=== PATIENT | female | born 1970 | race Caucasian/White ===

== ENCOUNTER 2023-07-01 06:23 | Day surgery (SDC) | payer OTHER, SELFPAY ==
[2023-06-12 08:58] LABS: Hematocrit 42.7 % (37.0-47.0); Hemoglobin 13.9 g/dL (12.0-16.0); Mean Corp Hgb Conc. 32.6 g/dL (33.0-37.0); Mean Corpuscular Volume 86.1 fL (81.0-99.0); Mean Platelet Volume 9.7 fL (7.4-10.4); Platelet Count 280 10^3/uL (130-400); Red Blood Cell Count 4.96 10^6/uL (4.20-5.40); Red Cell Dist. Width 12.8 % (11.5-14.5); White Blood Cell Count 5.5 10^3/uL (4.8-10.8)
[2023-06-12 09:10] LABS: Blood Urea Nitrogen 18 mg/dl (7-17); Calcium 9.6 mg/dl (8.4-10.2); Carbon Dioxide 29 mmol/L (22-30); Chloride 101 mmol/L (98-107); Glucose 90 mg/dl (70-99); Potassium 4.6 mmol/L (3.5-5.1); Sodium 140 mmol/L (135-145); eGFR > 60.00
[2023-06-12 13:54] VITALS: BMI 34.5
[2023-07-01] VITALS (10 sets, daily range): BP systolic 113–153; BP diastolic 55–84; BMI 34.5
[2023-07-01] MEDS: NORMOSOL-R 1000 IV (08:22)
[2023-07-01] MEDS: CELEBREX 200 MG PO (08:22)
[2023-07-01] MEDS: TYLENOL 1000 MG PO (08:22)
== END 2023-07-01 13:15 | disposition home or self-care (01) ==
LOC: SDS 06:23
PROVIDERS: ATTENDING PHYSICIAN Student in an Organized Health Care Education/Training Program; FAMILY PHYSICIAN Family Medicine
DX: M20.11 Hallux valgus (acquired), right foot (principal); M20.41 Other hammer toe(s) (acquired), right foot
CPT/HCPCS: 28297; 28285; 28308; 36415; 80048; 85027; 93005; C1713; C1776